=== PATIENT | female | born 1985 | race Caucasian/White ===

== ENCOUNTER 2022-02-14 11:57 | Day surgery (SDC) | payer OTHER ==
[2022-02-10 14:44] VITALS: BMI 28.3
[~2022-02-14 11:57] MED LIST: SODIUM CHLORIDE 0.9% 1,000 ML IV SCH
[2022-02-14] MEDS ORDERED: SODIUM CHLORIDE 0.9% 500 ML 500 ML IV ONE (12:04)
[2022-02-14 12:26] VITALS: RESP 16; TEMP 98.5
--- NOTE | 2022-02-14 14:34 | P.EPPROC ---
- EP Procedure Note Electrophysiology Procedure Note: Diagnosis Recurrent presyncope Twelve-lead EKG shows sinus rhythm Normal NE narrow QRS normal ST segments left atrial enlargement Tilt table test per protocol Baseline blood pressure 118/79 mmHg baseline 184 beats a minute Patient was tilted upright at an angle of 70 per protocol No change in heart rate and blood pressure No symptoms noted Impression Sinus mechanism with left atrial enlargement twelve-lead EKG Normal heart rate and blood pressure response to upright tilting
[2022-02-14 16:31] VITALS: BP 146/75; PULSE 87
== END 2022-02-14 14:30 | disposition home or self-care (01) ==
LOC: CATHEP 11:57
PROVIDERS: ATTEND Internal Medicine Clinical Cardiac Electrophysiology
DX: R55 Syncope and collapse (principal); Z20.822 Contact with and (suspected) exposure to COVID-19
CPT/HCPCS: 81025; 87635; 93660